=== PATIENT | female | born 1980 | race Caucasian/White ===

== ENCOUNTER → 2022-04-24 | Outpatient (CLI) | payer BC ==
--- NOTE | 2022-04-27 08:42 | MM ---
Reason for Exam: Screening (asymptomatic). Baseline mammogram. Patient History: Menarche at age 14. Patient has no children. Premenopausal. Currently using Hormonal Contraceptives, starting at age 36. Risk Values: Mary 5 year model risk: 0.6%. NCI Lifetime model risk: 11.1%. Prior Study Comparison: Patient's first Mammogram. Tissue Density: The breast tissue is heterogeneously dense. This may lower the sensitivity of mammography. Findings: Analyzed By CAD. Prominent but benign-appearing bilateral axillary lymph nodes. There is no suspicious group of microcalcifications or suspicious distortion in either breast. Overall Assessment: Negative, BI-RAD 1 Management: Screening Mammogram of both breasts in 1 year. A clinical breast exam by your physician is recommended on an annual basis and results should be correlated with mammographic findings. Electronically signed and approved by: Louis Chao M.D.
== END | disposition home or self-care (01) ==
LOC: RADMAMWWP 09:55
PROVIDERS: ATTEND Obstetrics & Gynecology
DX: Z12.31 Encounter for screening mammogram for malignant neoplasm of breast (principal)
CPT/HCPCS: 77063; 77067

== ENCOUNTER → 2023-10-11 | Outpatient (CLI) | payer BC ==
--- NOTE | 2023-10-11 16:02 | MM ---
Reason for Exam: Screening (asymptomatic). Last mammogram was performed 1 year(s) and 6 month(s) ago. Patient History: Menarche at age 14. Patient has no children. Premenopausal. Currently using Hormonal Contraceptives, starting at age 36. Risk Values: Mary 5 year model risk: 0.7%. NCI Lifetime model risk: 11.0%. Prior Study Comparison: 04/24/2022 Bilateral MG 3D screening mammo w/cad, [facility]. Tissue Density: The breasts are heterogeneously dense, which may obscure small masses. Findings: Analyzed By CAD. The pattern is symmetrical. No significant interval change. No suspicious groups of microcalcifications, spiculated or lobular masses, architectural distortion or other secondary signs of malignancy are mammographically apparent. Overall Assessment: Benign, BI-RAD 2 Management: Screening Mammogram of both breasts in 1 year. A negative mammogram report should not preclude additional follow up of suspicious palpable abnormalities. Patient should continue monthly self breast exam. A clinical breast exam by your physician is recommended on an annual basis and results should be correlated with mammographic findings. Note on Mary scores and lifetime risk: 1. A Mary score greater than 3% is considered moderate risk. If this is the case, consider specialist referral to assess eligibility for a risk reducing agent. 2. If overall lifetime risk for the development of breast cancer is 20% or higher, the patient may qualify for future screening with alternating mammogram and breast MRI. Electronically signed and approved by: Morales Clemente D.O. Radiologis
== END | disposition home or self-care (01) ==
LOC: RADMAMWWP 11:09
PROVIDERS: ATTEND Obstetrics & Gynecology
DX: Z12.31 Encounter for screening mammogram for malignant neoplasm of breast (principal)
CPT/HCPCS: 77063; 77067

== ENCOUNTER 2024-06-19 05:51 | Day surgery (SDC) | payer BC ==
[2024-06-13 11:07] VITALS: BMI 31.3
[~2024-06-19 05:51] MED LIST: LIDOCAINE 1% (10MG/ML) FOR IV START INTRADERMA PRN
[2024-06-19] MEDS ORDERED: fentaNYL (PF) 50 MCG/ML 2 ML AMP IV PRN (07:00)
[2024-06-19] MEDS: ONDANSETRON 4 MG/2 ML VIAL IVP ONE (07:03)
[2024-06-19] MEDS: SCOPOLAMINE 1 MG/72 HR PATCH TRANSDERM STA (07:05)
[2024-06-19] MEDS: IV FLUID CONTINUATION 1,000 ML IV ONE (07:06)
[2024-06-19] MEDS: LACTATED RINGERS 1,000 ML BAG IV STA (07:06)
[2024-06-19] MEDS: MIDAZOLAM 2 MG/2 ML VIAL IVP ONE (07:09)
[2024-06-19] MEDS: DEXAMETHASONE SOD PHOSPHATE 4 MG/ML 1 ML VIAL IVP STA (07:17)
[2024-06-19] MEDS ORDERED: GLYCOPYRROLATE 0.2 MG/ML 2 ML VIAL ONE (07:24)
[2024-06-19] MEDS ORDERED: ROCURONIUM 10 MG/ML (5 ML VIAL) IV ONE (07:24)
[2024-06-19] MEDS ORDERED: LIDOCAINE 1% INJ 10MG/ML (20 ML MDV) ONE (07:24)
[2024-06-19] MEDS ORDERED: PROPOFOL 10 MG/ML 20 ML VIAL IV ONE (07:24)
[2024-06-19] MEDS ORDERED: MIDAZOLAM 2 MG/2 ML VIAL ONE (07:24)
[2024-06-19] MEDS ORDERED: ePHEDrine 50 MG/ML 1 ML VIAL ONE (07:24)
[2024-06-19] MEDS ORDERED: NEOSTIGMINE 1 MG/ML 10 ML VIAL ONE (07:24)
[2024-06-19] MEDS ORDERED: fentaNYL (PF) 50 MCG/ML 2 ML AMP ONE (07:24)
[2024-06-19] MEDS ORDERED: diphenhydrAMINE 50 MG/ML 1 ML VIAL ONE (07:24)
[2024-06-19] MEDS ORDERED: MORPHINE SULFATE (PF) 0.3 MG/0.3 ML SYR ONE (07:24)
[2024-06-19] MEDS ORDERED: SUCCINYLCHOLINE CHLORIDE 200 MG/10 ML VIAL IV ONE (07:24)
--- NOTE | 2024-06-19 07:33 | P.HPOB ---
History of Present Illness H&P Date: 06/19/24 Chief Complaint: Scheduled hysterectomy Ms. Mcclure is a 43 year old G0 who presents for surgical managment of persistent HSIL of the cervix with TRUDY TERAN. 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 Past Anesthesia/Blood Transfusion Reactions: Postoperative Nausea & Vomiting (PONV) Smoking Status: Never smoker - Past Family History Father History Unknown: Yes Family Medical History: Cancer Additional Family Medical History / Comment(s): colon and stomach Mother History Unknown: Yes Family Medical History: Hypertension Sister(s) History Unknown: Yes Additional Family Medical History / Comment(s): Hodgkin's Lymphoma Medications and Allergies Home Medications Medication Instructions Recorded Confirmed Type Furosemide [Lasix] 40 mg PO DAILY 06/13/24 06/13/24 History Levothyroxine Sodium [Synthroid] 175 mcg PO QAM 06/13/24 06/13/24 History Propranolol [Inderal] 30 mg PO TID 06/13/24 06/13/24 History Spironolactone [Aldactone] 50 mg PO DAILY 06/13/24 06/13/24 History Allergies Allergy/AdvReac Type Severity Reaction Status Date / Time codeine AdvReac Nausea & Verified 06/19/24 06:24 Vomiting Exam Vital Signs Temp Pulse Resp BP Pulse Ox 06/19/24 06:29 99.1 F 65 20 139/61 100 Intake and Output 06/18/24 06/19/24 06/19/24 22:59 06:59 14:59 Intake Total 200 Balance 200 Intake: IV 200 Other: Weight 92.9 kg Focused physical exam is performed. Patient is in no apparent distress. Breathing is non labored. Abdomen soft, non-tender. Extremities non-tender and non-edematous. Assessment and Plan Assessment: 43 year old G0 with persistent HSIL presenting for KIMMY TERAN Plan: Risks, benefits, and alternatives to Robotic Assisted Total Laparoscopic Hysterectomy, Bilateral Salpingectomy, and Diagnostic Cystoscopy are discussed with the patient including risk of bleeding, infection, damage to surrounding structures including ureters/bowel/bladder, and post-operative VTE. The patient understands these risks and desires to proceed with surgery as discussed. All q uestions answered.
[2024-06-19] MEDS ORDERED: HYDROmorphone 0.5 MG/0.5 ML SYRINGE IVP PRN (07:40)
[2024-06-19] MEDS ORDERED: NALBUPHINE 10 MG/ML (10 ML MDV) IV PRN (07:40)
[2024-06-19] MEDS ORDERED: NALOXONE 0.4 MG/ML 1 ML VIAL IV PRN (07:40)
[2024-06-19] MEDS ORDERED: diphenhydrAMINE 50 MG/ML 1 ML VIAL IVP PRN (07:40)
[2024-06-19] MEDS ORDERED: ONDANSETRON 4 MG/2 ML VIAL IVP PRN (07:40)
--- NOTE | 2024-06-19 07:42 | P.ANPRN ---
Procedure Note - Anesthesia - Epidural/Spinal Spinal Time Out Performed: Yes Date of Procedure: 06/19/24 Procedure Start Time: 07:08 Procedure Stop Time: 07:16 Location of Patient: PreOp Indication: Acute Post-Operative Pain, Requested by Surgeon Sedation Type: Sedate with meaningful contact maintained Preparation: Sterile Prep Position: Sitting Needle Guage: 25 Blood Aspirated: No Pain Paresthesia on Injection Noted: No Events: Uneventful and Well Tolerated (Fentanyl 25 mcg and Duramorph 300 mcg injected intrathecally)
[2024-06-19] MEDS: BUPIVACAINE (PF) 0.25% 30 ML VIAL SQ ONE ×2 (07:54→08:48)
--- NOTE | 2024-06-19 09:01 | P.OP ---
Date of Procedure: 06/19/24 Preoperative Diagnosis: 1. Persistent HSIL (High grade squamous intraepithelial lesion) of cervix Postoperative Diagnosis: Same Procedure(s) Performed: Robotic Assisted Total Laparoscopic Hysterectomy, Bilateral Salpingectomy, Diagnostic Cystoscopy Implants: None Anesthesia: NADEEN Surgeon: Bisi Lawson Pulp Mill Operator #1: Rhea Hernandez Estimated Blood Loss (ml): 100 IV fluids (ml): 700 Urine output (ml): 50 (clear yellow) Pathology: other (uterus, cervix, bilateral fallopian tubes) Condition: stable Disposition: floor Indications for Procedure: Ms. Mcclure is a 43 year old G0 who presents for surgical management of persistent HSIL of the cervix with TRUDY TERAN today. Risks, benefits, and alternatives to surgery were discussed with the patient including risk of bleeding, infection, damage to surrounding structures including ureters/bladder/bowel, and post-operative VTE. The patient understands these risks and desires to proceed with surgery as discussed. All questions are answered. Operative Findings: Significant upper abdominal wall adhesions noted from prior surgeries. Normal appearing uterus, bilateral fallopian tubes, and bilateral ovaries. Description of Procedure: Prior to the beginning of the procedure, the team paused to verify the patient's identity, the procedure to be performed (in accordance with the consent,) and the correct side/site. The patient was positioned appropriately. All relevant images and results were properly labeled and displayed. We addressed antibiotic prophylaxis and fluids for irrigation as applicable to this patient. Any safety precautions were addressed. The patient was taken to the operating room where general anesthesia was induced without difficulty. She was then positioned in the dorsal lithotomy position in [facility]. Positioning included placing her arms at her sides. After the patient was placed in what was felt to be a neurologically safe position, deep Trendelenburg position was tested prior to the operative procedure, to ensure that she would not move on the operating table. The patient was then prepped and draped in the normal sterile fashion for a combined abdominovaginal surgery. A García catheter was placed in the bladder for continuous drainage. Uterus was sounded to 10 cm. Zairge-Care manipulator was placed in the uterus for manipulation. Attention was then placed to the abdomen. The normal length Veress needle was introduced into the abdominal cavity while tenting the abdominal wall. Low pressure was noted confirming appropriate placement. The abdomen was then insufflated to 15mmHg for the remainder of the case. The Veress needle was removed, and an 8 mm port was placed at the umbilical site under direct laparscopic visualization and there was no evidence of injury from the trocar placement. Visualization of the intraabdominal cavity showed normal pelvic anatomy without evidence of adhesions. The port sites for the remainder of the case were then measured out and placed under direct visualization. On the left side, one 8 mm robotic assist port and one 10 mm assist port were placed. On the right side, one 8 mm robotic port was placed. The Bubblesi robot was then brought to the operative field in a lateral docking style to the left of the patient and the robot was docked to the ports. All robotic instruments were brought into the pelvis under direct visualization with monopolar scissors in arm #3 and vessel sealer in arm #1. Bilateral ureters were visualized prior to starting the surgery. The right uteroovarian ligement was cauterized and cut. The right round ligament was cauterized and cut. Broad ligament was opened and bladder flap created. This was repeated on the left side with a portion of the left tube being removed at that time with the vessel sealer. The peritoneum of the bilateral broad ligaments was then taken down and monopolar cautery used to skeletonize the uterine arteries bilaterally. During the course of this dissection, the anterior leaf of the broad ligament was also taken down over the anterior aspect of the uterus and cervix to create a bladder flap. The bladder was then dissected off the cervix and upper vagina with the monopolar scissors and gentle blunt dissection. The bilateral uterine arteries were then cauterized and divided at the level of the internal cervical os. The monopolar cautery was used to incise the vaginal cuff. The uterus, along with the cervix was removed vaginally. Cuff was closed in with 0-Stratifix sutures. Excellent hemostasis was noted at this time. A 70 degree cystoscopy was performed which confirmed no suture placement within the bladder, no trauma to the bladder. Good efflux was noted from both ureteric orifices. The robot was undocked from the trocars and brought out of the operative field. The remainder of the ports were removed, and the gas was allowed to escape. All skin incisions were infiltrated with lidocaine and closed with 4-0 Monocryl and dermabond. Hemostasis was noted to be excellent throughout, and final sponge, instrument, and needle count was noted to be correct. The patient was moved back to the preoperative holding area in stable condition having tolerated the procedure well. A physician certified ophthalmic surgical assistant was utilized for the entire procedure due to the need for tissue retraction, dissection of vital structures, prevention and management of blood loss, and reduction in overall operative and anesthesia time as is the standard of care.
[2024-06-19] MEDS ORDERED: IBUPROFEN 600 MG TAB PO PRN (09:02)
[2024-06-19] MEDS ORDERED: SIMETHICONE 80 MG CHEWABLE PO PRN (09:02)
[2024-06-19] MEDS: KETOROLAC 15 MG/ML 1 ML VIAL IVP PRN (10:51)
[2024-06-19] MEDS: ACETAMINOPHEN TAB 500 MG TAB PO SCH (15:58)
[2024-06-19] MEDS: PROPRANOLOL 10 MG TAB PO SCH ×2 (15:59→22:04)
[2024-06-19] MEDS: SODIUM CHLORIDE 0.9% 500 ML 500 ML IV ONE (20:58)
[2024-06-19] MEDS: ACETAMINOPHEN TAB 500 MG TAB PO PRN (22:03)
[2024-06-20] MEDS ORDERED: ACETAMINOPHEN TAB 500 MG TAB PO SCH
[2024-06-20 04:15] VITALS: RESP 16
[2024-06-20] MEDS: LEVOTHYROXINE 88 MCG TAB PO SCH (05:57)
[2024-06-20 06:29] LABS: Basophils % (A) 0 %; Eosinophils # (A) 0.1 k/uL (0-0.7); Eosinophils % (A) 1 %; HCT 39.1 % (34.0-46.0); HGB 12.5 gm/dL (11.4-16.0); Lymphocytes # (A) 1.6 k/uL (1.0-4.8); Lymphocytes % (A) 9 %; MCH 31.1 pg (25.0-35.0); MCV 97.2 fL (80.0-100.0); Mean Platelet Volume 7.3; Monocytes # (A) 1.4 k/uL (0-1.0); Monocytes % (A) 8 %; Neutrophils % (A) 80 %; Platelet Count 271 k/uL (150-450); RBC 4.02 m/uL (3.80-5.40); RDW 13.6 % (11.5-15.5); WBC 17.4 k/uL (3.8-10.6)
--- NOTE | 2024-06-20 07:52 | P.PN ---
Progress Note - Text Adequate analgesia. No anesthetic complication.
[2024-06-20 08:39] VITALS: BP 98/64; PULSE 59; TEMP 98.5
--- NOTE | 2024-06-20 08:41 | P.DS ---
Providers Date of admission: 06/19/2024 Expected date of discharge: 06/20/24 Attending physician: Bisi Lawson MD Primary care physician: Stated None Hospital Course: 43 year old G0 POD#1 s/p TRUDY TERAN, Dx Cystoscopy. She is doing well this morning, no complaints. The patient is doing well this morning and had no acute events overnight. She has no complaints this morning. She reports minimal vaginal spotting, passing flatus, ambulating, voiding, and eating/drinking without nausea or vomiting. She denies chest pain, shortness of breathing, fevers, or chills overnight. She denies pain or swelling in the legs. Postoperative restrictions are reviewed with the patient including pelvic rest for 6 weeks, no lifting heavier than 15 pounds for 6 weeks. The patient is encouraged to call the office if she experiences any heavy bleeding, foul- smelling discharge, or any if she has any other concerns. She will follow up in the office with in 2 weeks for postoperative exam. She plans to use Tylenol OTC as needed for pain. All questions are answered. Assessment: 43 year old POD#1 s/p TRUDY TERAN, Dx Cystoscopy Patient Condition at Discharge: Good Plan - Discharge Summary Discharge Rx Participant: Yes New Discharge Prescriptions: No Action Furosemide [Lasix] 40 mg PO DAILY Spironolactone [Aldactone] 50 mg PO DAILY Propranolol [Inderal] 10 mg PO TID Levothyroxine Sodium [Synthroid] 175 mcg PO QAM Discharge Medication List Furosemide [Lasix] 40 mg PO DAILY 06/13/24 [History] Levothyroxine Sodium [Synthroid] 175 mcg PO QAM 06/13/24 [History] Propranolol [Inderal] 10 mg PO TID 06/13/24 [History] Spironolactone [Aldactone] 50 mg PO DAILY 06/13/24 [History] Follow up Appointment(s)/Referral(s): Bisi Lawson MD [STAFF PHYSICIAN] - 2 Weeks Patient Instructions/Handouts: *Surgery [facility] - Scopalamine Patch Instructions Activity/Diet/Wound Care/Special Instructions: Postoperative Instructions 1. No heavy lifting or straining (exercising) until after 6 week checkup. 2. Do not resume sexual relations for 6 weeks or longer if uncomfortable. 3. Keep abdominal incision clean and dry: You may wear a dressing if more comfortable. 4. Keep any areas repaired with stitches clean and dry. 5. Call the office, , within the next week to make appointment for your 2 week checkup 6. Report any of the following occurrences to the doctor promptly: a. Heavy, excessive bleeding b. Chills, fever c. Burning or frequency of urination d. Pain or redness around the incisions Discharge Disposition: HOME SELF-CARE
[2024-06-20] MEDS: SPIRONOLACTONE 25 MG TAB PO SCH (09:49)
[2024-06-20] MEDS: FUROSEMIDE 40 MG TAB PO SCH (09:53)
== END 2024-06-20 12:15 | disposition home or self-care (01) ==
LOC: OR 05:51 → 4FBP 08:51 → OR 06-20 12:15
PROVIDERS: ATTEND Obstetrics & Gynecology
DX: D25.1 Intramural leiomyoma of uterus (principal); N87.1 Moderate cervical dysplasia; N72 Inflammatory disease of cervix uteri; E07.9 Disorder of thyroid, unspecified; G89.18 Other acute postprocedural pain; Z79.890 Hormone replacement therapy; Z85.850 Personal history of malignant neoplasm of thyroid; Z88.5 Allergy status to narcotic agent; Z90.49 Acquired absence of other specified parts of digestive tract; Z79.899 Other long term (current) drug therapy
CPT/HCPCS: 58571; S2900; 81025; 85025; 88307; 88309; 88342

== ENCOUNTER → 2024-10-13 | Outpatient (CLI) | payer BC ==
--- NOTE | 2024-10-13 18:35 | MM ---
Reason for Exam: Screening (asymptomatic). Last screening mammogram was performed 12 month(s) ago. Patient History: Menarche at age 14. Patient has no children. Hysterectomy at age 43. Postmenopausal. Currently using Hormonal Contraceptives, starting at age 36. Last menstrual period: Risk Values: Mary 5 year model risk: 0.7%. NCI Lifetime model risk: 10.9%. Prior Study Comparison: 04/24/2022 Bilateral MG 3D screening mammo w/cad, [facility]. 10/11/2023 Bilateral MG 3D screening mammo w/cad, [facility]. Tissue Density: There are scattered areas of fibroglandular density. Findings: Analyzed By CAD. New nodularity central posterior lower outer right breast. Asymmetric density central right MLO view below the left appears more defined. Further evaluation recommended for both findings. Unchanged small intramammary lymph node lateral left breast. Overall Assessment: Incomplete: need additional imaging evaluation, BI-RAD 0 Management: Special View Mammogram of the right breast. [facility] will attempt to contact patient to return for supplemental views and ultrasound if indicated. [facility], , 10/13/2024 6:33 PM. Electronically signed and approved by: David Palmer M.D. Radiologist
== END | disposition home or self-care (01) ==
LOC: RADMAMWWP 11:28
PROVIDERS: ATTEND Obstetrics & Gynecology
DX: Z12.31 Encounter for screening mammogram for malignant neoplasm of breast (principal); R92.323 Mammographic fibroglandular density, bilateral breasts; Z78.0 Asymptomatic menopausal state; Z92.0 Personal history of contraception
CPT/HCPCS: 77063; 77067

== ENCOUNTER → 2024-10-18 | Outpatient (CLI) | payer BC ==
--- NOTE | 2024-10-18 09:16 | MM ---
Reason for Exam: Clinical finding. Last screening mammogram was performed less than 1 month ago. Patient History: Menarche at age 14. Patient has no children. Hysterectomy at age 43. Postmenopausal. Currently using Hormonal Contraceptives, starting at age 36. Risk Values: Mary 5 year model risk: 0.7%. NCI Lifetime model risk: 10.9%. Tissue Density: Right: There are scattered areas of fibroglandular density. Findings: Analyzed By CAD. There is asymmetry 11 cm from nipple on CC view only posterior depth measuring up to 8 mm. Overall Assessment: Incomplete: need additional imaging evaluation, BI-RAD 0 Management: Diagnostic Breast Ultrasound of the right breast. Ultrasound left breast 11-1 o'clock 11 cm from nipple for 8 mm lesion. Results were given to the patient verbally at the time of exam. Patient should continue monthly self-breast exams. A clinical breast exam by your physician is recommended on an annual basis. This exam should not preclude additional follow-up of suspicious palpable abnormalities. Note on Mary scores and lifetime risk: 1. A Mary score greater than 3% is considered moderate risk. If this is the case, consider specialist referral to assess eligibility for a risk reducing agent. 2. If overall lifetime risk for the development of breast cancer is 20% or higher, the patient may qualify for future screening with alternating mammogram and breast MRI. [facility], , 10/18/2024 9:01 AM. Electronically signed and approved by: Ahmet Lara DO
--- NOTE | 2024-10-18 09:49 | USB ---
Reason for Exam: Additional evaluation requested from abnormal screening. Patient History: Menarche at age 14. Patient has no children. Hysterectomy at age 43. Postmenopausal. Currently using Hormonal Contraceptives, starting at age 36. Risk Values: Mary 5 year model risk: 0.7%. NCI Lifetime model risk: 10.9%. Technique: Method: Targeted. Prior Study Comparison: 04/24/2022 Bilateral MG 3D screening mammo w/cad, [facility]. 10/11/2023 Bilateral MG 3D screening mammo w/cad, [facility]. 10/13/2024 Bilateral MG 3D screening mammo w/cad, [facility]. Findings: The upper section of the breast of the right breast, the axilla of the right breast and the retroareolar of the right breast were scanned. Technique utilized:US breast workup limited RT Image; Ultrasound imaging of: Area of concern upper aspect 11-1:00., retroareolar region and axilla. * Lymph nodes in the right axilla are again seen and are enlarged. The largest on mammography today is measuring up to 18 mm. It should be noted on 08/21/2010 CT there are enlarged lymph nodes up to 20 mm. Short-term follow-up recommended in 3 months. * Tiny cluster of cysts 11:00 11 cm nipple measuring up to 4 x 5 x 3 mm likely corresponding to mammography finding. Overall Assessment: Probably benign, BI-RAD 3 Management: Diagnostic Breast Ultrasound of the right breast in 3 months. A clinical breast exam by your physician is recommended on an annual basis and results should be correlated with mammographic findings. This exam should not preclude additional follow-up of suspicious palpable abnormalities. Results were given to the patient verbally at the time of exam. [facility], , 10/18/2024 9:46 AM. Electronically signed and approved by: Ahmet Lara DO
== END | disposition home or self-care (01) ==
LOC: RADMAMWWP 08:36
PROVIDERS: ATTEND Obstetrics & Gynecology
DX: R92.8 Other abnormal and inconclusive findings on diagnostic imaging of breast (principal); R92.321 Mammographic fibroglandular density, right breast; Z78.0 Asymptomatic menopausal state; Z92.0 Personal history of contraception
CPT/HCPCS: 77061; 77065